=== PATIENT | male | born 1960 | race Asian ===

== ENCOUNTER 2017-03-30 19:13 | Emergency (ER) | payer BC ==
[~2017-03-30] VITALS: Ht 180.3 cm; Wt 89.8 kg
== END 2017-03-30 20:48 | disposition home or self-care (01) ==
LOC: ED 19:13
DX: S80.872A Other superficial bite, left lower leg, initial encounter (principal); S80.812A Abrasion, left lower leg, initial encounter; W54.0XXA Bitten by dog, initial encounter; Y92.89 Other specified places as the place of occurrence of the external cause
CPT/HCPCS: 99281

== ENCOUNTER 2019-01-16 18:10 | Outpatient (CLI) | payer OTHER, BC | END 2019-01-16 19:42 | disposition home or self-care (01) | LOC: LABW 18:10 | DX: R19.5 Other fecal abnormalities (principal) | CPT/HCPCS: 82272 ==

== ENCOUNTER 2021-01-07 09:00 | Outpatient (CLI) | payer BC, OTHER | END 2021-01-07 16:00 | disposition home or self-care (01) | LOC: INF 09:00 | PROVIDERS: ATTEND Internal Medicine | DX: Z23 Encounter for immunization (principal) | CPT/HCPCS: 96372 ==

== ENCOUNTER 2021-01-31 12:25 | Outpatient (CLI) | payer BC, OTHER | END 2021-01-31 23:59 | disposition home or self-care (01) | LOC: INF 12:25 | PROVIDERS: ATTEND Internal Medicine | DX: Z23 Encounter for immunization (principal) | CPT/HCPCS: 96372 ==